=== PATIENT | male | born 1945 | race Caucasian/White ===

== ENCOUNTER 2019-07-12 16:25 | Emergency (ER) | payer MEDICARE, OTHER, SELFPAY ==
[2019-07-12 16:26] VITALS: BP 163/104; PULSE 80; RESP 14; TEMP 36.8; O2SAT 100; BMI 25.2
--- NOTE | 2019-07-12 16:41 | ED.DCSUM_ITS ---
- ER Visit Summary Date of Service: 07/12/19 Chief Complaint: Urinary retention History of Present Illness: The patient is a 74 M presenting with urinary retention. Patient states this has been ongoing for the past several days. He states that he is able to urinate small amounts of urine but does not feel like he is emptying his bladder. He was seen at the CT and had a CT scan that showed enlarged bladder. He was called today and advised to come to the ED for further evaluation. He states that he was complaining of dysuria and was put on Cipro and the symptoms have now improved. He is supposed to follow-up with urology. Physical Examination: Vitals are stable. Patient is afebrile. Alert no acute distress. HEENT exam is unremarkable. Neck is supple. Lungs are clear and equal bilaterally. Heart is regular rate and rhythm. Abdomen is soft mild suprapubic tenderness, no guarding or rebound Extremities are unremarkable. Skin is warm and dry. No focal neurologic deficit. Remainder of exam is unremarkable. Emergency Department Course and Treatment: Ryan catheter was placed on patient arrival and 2900 cc urine returned. Patient feels much improved. Urinalysis shows 0 white cells, 0-5 red blood cells. He was sent home with a Ryan catheter, leg bag. Advised to follow-up with urology. Advised to return to ED for worsening complaints. Disposition: Discharge home Impression: Urinary retention This note was generated with [employer] dictation software. It may contain incorrect words, spelling, and punctuation that were not noted in review of the chart prior to signing ED Disposition - Plan for ED Patient: Instructions: URINARY RETENTION, Male Referrals: Reynaldo Sullivan MD [Primary Care Provider] - Benjy Schulz MD [STAFF PHYSICIAN] -
[2019-07-12] MEDS: Lidocaine Jelly 2% 20 ML Syringe (URO-JET) 20 APPLIC TOPICAL (17:00)
[2019-07-12 17:12] LABS: Bacteria 0 SEEN /hpf (None Seen); Mucous, Urine 0 SEEN /hpf (<or=2+); Squamous Epithelial Cells - UA 0 SEEN /hpf (0-5); White Blood Cells 0 SEEN /hpf (0-5)
[2019-07-12 17:30] LABS: Color, Urine Yellow (Yellow); Glucose, Dipstick 100 mg/dl (Normal); Ketone-Dipstick Negative (Negative); Leukocyte Esterase-Dipstick Negative /ul (Negative); Nitrite-Dipstick Negative (Negative); Occult Blood-Urine 250 /ul (Negative); Protein-Dipstick 30 mg/dl (Negative); Specific Gravity, Urine 1.015 (1.002-1.030); Urine Bilirubin Dipstick Negative (Negative); Urine Clarity Clear (Clear); Urine Urobilinogen Normal (Normal)
[2019-07-12 17:55] LABS: Red Blood Cells-Urine 0-5 SEEN /hpf (0-5)
--- NOTE | 2019-07-12 18:21 | ED.DEP ---
ED Disposition - Plan for ED Patient: Instructions: URINARY RETENTION, Male Referrals: Reynaldo Sullivan MD [Primary Care Provider] - Benjy Schulz MD [STAFF PHYSICIAN] -
[2019-07-12 18:41] VITALS: RESP 18
== END 2019-07-12 18:42 | disposition home or self-care (01) ==
LOC: ED 17:33
PROVIDERS: Emergency Provider Emergency Medicine; Family Provider Family Medicine; PCP Family Medicine
DX: R33.9 Retention of urine, unspecified (principal); E11.9 Type 2 diabetes mellitus without complications; I10 Essential (primary) hypertension; E78.00 Pure hypercholesterolemia, unspecified; N40.0 Benign prostatic hyperplasia without lower urinary tract symptoms
CPT/HCPCS: 51702; 81001; 99283

== ENCOUNTER → 2019-10-26 07:04 | Outpatient (CLI) | payer OTHER, SELFPAY ==
--- NOTE | 2019-10-26 15:34 | PFTCOMP_ITS ---
COMPLETE PULMONARY FUNCTION TEST INTERPRETATION Brief HPI: Patient is a 74 year old male, currently under the care of Dr. Galvan, who presents to [facility] for complete pulmonary function tests secondary to diagnosis of lung cancer. Respiratory therapist reports good effort and reproducible results. Interpretation: Forced expiration spirometry shows no large airways obstructive ventilatory defect with an FEV1 of 86% predicted. There is no significant bronchodilator response by strict ATS criteria. Spirograms are of good quality and plateau normally. The respiratory flow volume loop shows a normal pattern. Lung volumes by body plethysmography show a normal total lung capacity at 7.21 L, 111% predicted. FRC and RV are elevated out of proportion. Lung volume measurements are consistent with air-trapping. Diffusion capacity by carbon monoxide is normal at 77% predicted. The airway resistance is normal. No previous pulmonary function tests were available for review. Impression: Grossly normal pulmonary function testing. Decrease after bronchodilator likely secondary to poor effort versus respiratory muscle fatigue
== END ==
PROVIDERS: PCP Family Medicine; Referring Provider Orthopaedic Surgery; Visit Provider Orthopaedic Surgery
DX: C34.90 Malignant neoplasm of unspecified part of unspecified bronchus or lung (principal)
CPT/HCPCS: 94060; 94726; 94729

== ENCOUNTER 2020-03-23 09:48 | Inpatient (IN) | payer OTHER, MEDICARE, SELFPAY ==
[2020-03-23] VITALS (14 sets, daily range): BP systolic 143–158; BP diastolic 82–94; PULSE 75–114; RESP 12–19; TEMP 36.7–37.2; O2SAT 95–100; BMI 20.4
--- NOTE | 2020-03-23 09:52 | CT_ITS ---
We are attempting to reach an attending provider to discuss findings. An addendum with communication details will be sent when the communication is complete. STUDY: CT BRAIN WITHOUT CONTRAST REASON FOR EXAM: Male, 75 years old. CVA, SLURRED SPEECH, RT SIDED WEAKNESS RADIATION DOSAGE (If Supplied By Facility): CTDIvol = ( 44.99 ) mGy, DLP = ( 829.85 ) mGycm TECHNIQUE: Transaxial CT imaging of the brain was performed without administration of intravenous contrast material. Coronal and sagittal reconstructions were performed. Individualized dose optimization techniques were used for this CT. COMPARISON: No relevant priors. FINDINGS: Normal soft tissue structures. Normal calvarium. Normal size ventricles and extra-axial spaces for the patient''s age. Hypodensities in the white matter of both cerebral hemispheres are greater in the frontal lobes. They are chronic white matter ischemic changes. 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 No midline shift and no mass effects. Normal basal ganglia and thalami. Normal brainstem. Normal cerebellum. There is no intracranial hemorrhage. There are no findings of an acute ischemic infarction. Normal visualized paranasal sinuses. CT/Brain/Head without Contrast IMPRESSION: 1. No CT evidence of intracranial bleeding, acute ischemic infarct or acute intracranial abnormality at this time. 2. 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 Electronically Signed: Narinder Campbell MD at 10:07 EDT , Service support ,
--- NOTE | 2020-03-23 09:52 | EKG12_ITS ---
Test Reason : STROKE TEAM Blood Pressure : / mmHG Vent. Rate : 080 BPM Atrial Rate : 080 BPM P-R Int : 142 ms QRS Dur : 084 ms QT Int : 366 ms P-R-T Axes : 063 009 048 degrees QTc Int : 422 ms Normal sinus rhythm Normal ECG Confirmed by ANGELA BUCKNER, DAVID ([id number]), editor publications JONAH PLASCENCIA ([id number]) on 03/26/2020 9:23:41 AM Referred By: RU Confirmed By:DAVID MILLER MD
--- NOTE | 2020-03-23 09:53 | RAD_ITS ---
STUDY: X-RAY CHEST REASON FOR EXAM: Male, 75 years old. Slurred speech and weakness. Small cell lymphoma. TECHNIQUE: AP upright portable view. COMPARISON: None. FINDINGS: The lungs are clear and expanded. There is no demonstrated pleural abnormality. Normal size heart. Normal mediastinum and jeff. Normal visualized pulmonary arteries. Normal visualized aortic arch and descending thoracic aorta. Normal visualized thoracic spine. Normal visualized ribs, clavicles, and shoulders. There is no demonstrated abnormality of the visualized soft tissue structures of the upper abdomen. RAD/Chest 1 View (Portable) IMPRESSION: Normal x-ray examination of the chest. Electronically Signed: Narinder Campbell MD at 12:09 EDT , Service support ,
[2020-03-23 10:01] LABS: Absolute Lymphocyte Count 1.01 X10^3/uL (0.83-4.51); Absolute Neutrophil Count 5.9 X10^3/uL (2.0-7.7); Basophil# 0.02 X10^3/uL; Basophil% 0.3 % (0-1); Eosinophil# 0.26 X10^3/uL; Eosinophils% 3.5 % (0-5); Hematocrit 27.2 % (40-54); Hemoglobin 8.5 g/dL (13.0-16.5); Lymphocyte # 1.01 X10^3/ul (4.0); Lymphocyte % 13.4 % (19-41); Mean Corp Hgb Conc 31.3 g/dL (32-36); Mean Corpuscular Hgb 27.7 pg (27.0-32.0); Mean Corpuscular Volume 88.6 fL (80-94); Mean Platelet Vol. 10.4 fl (6.2-12.0); Monocyte# 0.35 X10^3/uL; Monocyte% 4.6 % (0-10); NRBC Flagged by Analyzer 0 % (0-5); Neutrophil # 5.86 X10^3/uL (2.7-7.7); Neutrophil % 77.8 % (47-70); Platelet Count 222 K/mm3 (150-450); RBC Distribution Width SD 48.5 fl (35.1-43.9); Red Blood Count 3.07 M/mm3 (4.6-6.2); White Blood Count 7.5 K/mm3 (4.4-11.0)
[2020-03-23 10:12] LABS: International Normalized Ratio 1.4
[2020-03-23 10:13] LABS: Partial Thromboplast Time 34.7 Seconds (24.1-36.2)
--- NOTE | 2020-03-23 10:14 | ED.DCSUM_ITS ---
- ER Visit Summary Date of Service: 03/23/20 Chief Complaint: [Difficulty with speech] History of Present Illness: The patient is a 75 M [presents the emergency department via private vehicle with his . Patient apparently started having hard time finding words approximately 9 AM today. Patient also was having a hard time opening the door with his right hand. Patient currently undergoing treatment for lung cancer. Patient is stage IV. states he recently had a brain scan that did not show any evidence of metastasis to the brain. No history of stroke. Patient does have history of diabetes. Patient denies headache. He denies chest pain or shortness of breath. He denies recent illness otherwise. states that he has been feeling somewhat weak over the last week and has had some vision changes over the last 2 to 3 days where he has had trouble with depth perception. also states patient recently received a unit of blood and some IV fluids earlier in the week. No history of rectal bleeding. No recent surgeries.] Physical Examination: [HEENT-PERRLA, EOMI. Cranial nerves II through XII grossly intact. TMs clear. Mucous membranes moist. No adenopathy. Cardiovascular-regular rate and rhythm without murmur or ectopy Lungs-clear to auscultation, chest wall stable without crepitus or subcu emphysema Abdomen-normoactive bowel sounds, soft, nontender, no rebound or rigidity, no peritoneal signs. Neuro [id number] and heel reynolds testing within normal limits, negative Romberg, negative , Fundi benign. NIH stroke scale was a 2 4 expressive aphasia. No focal weakness noted on exam. No ataxia. Extremities-intact ?4, normal range of motion, normal pulses, atraumatic] Test Results: [CT scan of the brain without contrast obtained showed no evidence of hemorrhage or acute infarct. CBC with differential obtained showed a white count of 7.5, hemoglobin 8.5, hematocrit 27, platelets 222. INR was 1.4. Fingerstick blood sugar on arrival was 134.] Emergency Department Course and Treatment: [Patient was evaluated via robot by neurologist from [facility] after return from CT scanner. Patient's symptoms significantly improved at this time and his expressive aphasia has improved dramatically. The neurologist got an NIH stroke scale of 0 and recommended against TPA at this time but did recommend admission for small stroke work-up.] Treatment Plan: [Admit] Disposition: [Admit] Impression: [CVA] Lung cancer history Anemia This note was generated with [employer] dictation software. It may contain incorrect words, spelling, and punctuation that were not noted in review of the chart prior to signing ED Disposition - Plan for ED Patient: Referrals: Reynaldo Sullivan MD [Primary Care Provider] -
[2020-03-23 10:18] LABS: Anion Gap 4 (5-15); BUN 20 mg/dL (7-18); BUN/Creat Ratio 13.6 RATIO (10-20); Calcium,Total 9.2 mg/dL (8.5-10.1); Chloride 106 mmol/L (98-107); Creatinine, Serum 1.47 mg/dL (0.70-1.30); EST Glomerular Filtration Rate 50 mL/min (>60); Est Glom Filt Rate - Afr Amer 60 mL/min (>60); Estimated Creatinine Clearance 42.03 ml/min; Glucose 188 mg/dL (74-106); Potassium 4.2 mmol/L (3.5-5.1); Sodium Level 138 mmol/L (136-145)
--- NOTE | 2020-03-23 10:45 | ED.RN ---
PLACIDO HOLLIS CONTACTED AND MADE AWARE THAT PATIENT IS TO BE ADMITTED, WILL CALL BACK AND INFORM US OF THEIR CURRENT BED SITUATION.
--- NOTE | 2020-03-23 10:46 | HP.PCM_ITS ---
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 Patient symptoms started 2 hours prior to him presenting to the ED. He did experience numbness as well as weakness mainly involving the left upper extremity. Per patient's who was with him at the time of my assessment patient also did experience some slurred speech. Patient symptoms had apparently resolved at the time of arrival to the ED. Initial head CT obtained was unremarkable admitted to a monitored bed for subsequent management. Past Medical History Past Medical History (Chronic Problems): Chronic Problems Small cell carcinoma of left lung (Chronic) Allergies atorvastatin calcium [From Lipitor] Allergy (Verified 03/23/20 10:03) Other Home Medications: Ambulatory Orders Medication Instructions Recorded Amlodipine [Norvasc] 10 mg PO DAILY 06/28/14 Aspirin [Aspirin, Baby] 81 mg PO DAILY 06/28/14 Hydrochlorothiazide [Hctz] 25 mg PO DAILY 06/28/14 Insulin Glargine [Lantus SoloStar 100 units SC QHS 06/28/14 Pen] Levothyroxine [Synthroid] 100 mcg PO DAILY 06/28/14 Lisinopril [Zestril] 40 mg PO DAILY 06/28/14 Meloxicam [Mobic] 15 mg PO DAILY 06/28/14 Pravastatin [Pravachol] 20 mg PO QHS 06/28/14 metFORMIN (XR) [Glucophage Xr] 500 mg PO BID 06/28/14 Hydrocodone Bitart/Apap 5-325 1 tablet PO Q4H PRN PRN #20 tablet 07/05/14 [Hickman 5MG-325MG] Smoking Status: Never smoker - *Family History Sibling History Items: Stroke - brother Review of Systems Constitutional: Denies: Anorexia, Chills, Fever, Night Sweats, Weight Change HEENT: Denies: Head Aches, Sinus Congestion, Sinus Drainage Cardiovascular: Denies: Chest Pain, Orthopnea, Palpitations, Paroxysmal Noc. Dyspnea Respiratory: Denies: Cough, Shortness of breath at rest, Shortness of breath upon exertion, Sputum production Gastrointestinal: Denies: Abdominal Pain, Hematemesis, Hematochezia, Nausea, Melena, Vomiting Genitourinary: Denies: Dysuria, Frequency, Hematuria, Urgency Musculoskeletal: Denies: Joint Pain, Joint Tenderness Skin: Denies: Rash Neurological: Reports: Focal weakness, Numbness. Denies: Tingling Psychiatric: Denies: Homicidal Ideations, Suicidal Ideations Hematologic/ Lymphatic: Denies: Easy Bruising, Easy Bleeding VTE Information - Inpt Only VTE Present on Admission: No VTE Mechan Device Prophylaxis: None VTE Pharm Prophylaxis ordered?: Yes Patient Problems: Active and Suspected Problems Right sided weakness (Acute) Objective: GENERAL: cooperative HEENT: Atraumatic; EYES; Anicteric, Normal Conjunctiva NECK; supple, normal thyroid, RESPIRATORY: Diminished to auscultation CARDIOVASCULAR: Regular S1 S2, GI: soft, normoactive bowel sounds, : No Renal angle tenderness; EXTREMITIES: No edema, no clubbing, MUSCULOSKELETAL: no muscle waisting NEURO: Awake; no lateralizing signs. SKIN: No Rash PSYCH; Flat affect - Physical Exam Vitals/I&O's: Vital Signs Temp Pulse Resp BP Pulse Ox 98.6 F 77 18 149/90 H 95 03/23/20 10:44 03/23/20 10:44 03/23/20 10:44 03/23/20 10:44 03/23/20 10:44 Oxygen Delivery Method Room Air Weight: 66.4 kg Body Mass Index (BMI) 20.4 Finger Stick Blood Glucose 134 Laboratory Results 03/23/20 09:50: WBC 7.5, RBC 3.07 L, Hgb 8.5 L, Hct 27.2 L, MCV 88.6, MCH 27.7, MCHC 31.3 L, RDW Std Deviation 48.5 H, RDW Coeff of Aldo 15.0 H, Plt Count 222, MPV 10.4, Immature Gran % (Auto) 0.400, Neut % (Auto) 77.8 H, Lymph % (Auto) 13.4 L, Candler % (Auto) 4.6, Eos % (Auto) 3.5, Baso % (Auto) 0.3, Absolute Neuts (auto) 5.9, Absolute Lymphs (auto) 1.01, Nucleated RBC % 0 03/23/20 09:50: PT 17.0 H, INR 1.4, APTT 34.7 03/23/20 09:50: Sodium 138, Potassium 4.2, Chloride 106, Carbon Dioxide 28.0, Anion Gap 4 L, BUN 20 H, Creatinine 1.47 H, Estim Creat Clear Calc 42.03, Est GFR (MDRD) Af Amer 60, Est GFR (MDRD) Non-Af 50 L, BUN/Creatinine Ratio 13.6, Glucose 188 H, Calcium 9.2, Troponin I < 0.015 Current Medications Labetalol HCl (Trandate) 20 mg IV X1 PRN PRN Reason: BLOOD PRESSURE Assessment/Plan All Active Problems Right sided weakness (Acute) Patient is a 75-year-old gentleman presenting with right-sided weakness 1. Right-sided weakness TIA versus acute CVA. Admitted to monitored bed placed on every 4 neurochecks as part of patient's management ordered MRI of the brain as well as CTA of the head and neck. Patient was also started on antiplatelet therapy with aspirin as well as pravastatin (patient has allergy to atorvastatin) 3. 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 Patient had apparently declined prophylactic irradiation of the brain 3. Hypertension - Blood pressure controlled, home medications continued with dose adjustment as needed 4. Hypothyroidism - Patient is on levothyroxine home dose continued 5. Dyslipidemia -Patient is on statin therapy, continued at home dose 6. Diabetes mellitus type 2 ?Controlled on metformin held on admission please on Accu-Cheks before meals and at bedtime with sliding scale coverage as well as 1800 ADA diet 7. DVT prophylaxis - On enoxaparin . Advance planning; did discuss with the patient and family regarding advanced directives as well as CODE STATUS. Did explain the various scenarios involved ( FULL CODE, DNR CCA, DNR CCA with no intubation, and DNR CC and what each meant) patient elected t remain full code with CPR and intubation if warranted i ntubation. Order was placed. Time spent on discussion 18 minutes. Inpatient E&M: 55471 Init Hosp L3 Procedures: 39946 Advncd Care Plan 30 Min
--- NOTE | 2020-03-23 11:49 | ED.RN ---
PLACIDO [facility] CALLS BACK STATING THAT THEY HAVE NO MEDICAL BEDS AVAILABLE, PATIENT WILL BE ADMITTED HERE AT [facility].
--- NOTE | 2020-03-23 12:08 | CT_ITS ---
STUDY: CTA HEAD AND NECK WITH CONTRAST REASON FOR EXAM: Male, 75 years old. ACUTE CVA- SLURRED SPEECH, DIFFICULTY GETTING WORDS OUT, RT SIDED WEAKNESS RADIATION DOSAGE (If Supplied By Facility): CTDIvol = ( 19.17 ) mGy, DLP = ( 658.77 ) mGycm TECHNIQUE: CT angiography was performed with a multi-detector CT scanner. Data acquisition was obtained from the skull base through the vertex following intravenous administration of [id number]. MIP images were reconstructed from the axial data set. Post-processing of the angiographic images was performed, with multiplanar reformation and 3D reconstruction. Individualized dose optimization techniques were used for this CT. COMPARISON: No relevant priors. FINDINGS: The aorta has a normal branching pattern. Right brachiocephalic, right subclavian, right common carotid, left common carotid and left subclavian arteries are patent. Vertebral arteries are codominant and arise bilaterally from the subclavian arteries. Bilateral internal and external carotid arteries are patent with mild atherosclerotic plaque in the carotid bulbs without stenosis. Bilateral base of skull carotids, intracranial carotids, bifurcations, anterior and middle cervical arteries and proximal branches are patent. There is a origin right [employer]. Left posterior commuting artery is not seen. Bilateral posterior cerebral arteries, superior cerebellar, basilar and codominant intradural vertebral arteries are patent. Brain parenchyma is visualized in a suboptimal fashion likely with bilateral frontal white matter periventricular hypodensity. Soft tissues of the neck are unremarkable. Cervical spine is aligned. CT/CTA Head AND Neck W/ Contrast IMPRESSION: Patent craniocervical arteries. Electronically Signed: Yunier Umanzor, at 15:50 EDT Tel , Service support ,
--- NOTE | 2020-03-23 12:08 | ECHOD_ITS ---
Reason For Study: TIA/CVA Procedure This was a 2D Doppler, Color Flow transthoracic echocardiogram. The study was technically difficult. Contrast injection was performed. Exam performed portable in patient room. Left Ventricle Normal LV size. Left ventricular systolic function is normal. The estimated ejection fraction is 60 %. No regional wall motion abnormalities noted. Right Ventricle Normal RV size. Normal systolic function. Atria Normal left atrium. Normal right atrium. Bubble contrast study negative for right to left interatrial shunt. Mitral Valve Normal mitral valve. Tricuspid Valve Normal tricuspid valve. Aortic Valve Normal aortic valve. Trisinus/trileaflet aortic valve. Pulmonic Valve Normal pulmonic valve. Great Vessels Normal aortic root. The pulmonary artery is normal size. Normal inferior vena cava. Pericardium/Pleural No pericardial effusion. Medication Performed a rapid injection of agitated mix of 9 cc saline and 1cc air to assess for atrial septal defect. MMode/2D Measurements & Calculations LVIDd: 4.3 cm IVSd: 1.0 cm LA dimension: 3.5 cm LVIDs: 2.3 cm LVPWd: 1.1 cm RVDd: 3.3 cm FS: 46.2 % LAV(MOD-bp): 55.6 ml LA A4 area: 18.1 cm2 RA A4 area: 14.4 cm2 LAV(MOD-bp) Indexed: 30.1 ml/m2 LAV(MOD-sp2): 47.8 ml LAV(MOD-sp4): 55.9 ml Time Measurements MV dec time: 0.24 sec Doppler Measurements & Calculations MV E max michoacano: 91.7 cm/sec Lat Peak E' [place]: 11.2 cm/sec Med Peak E' [place]: 9.6 cm/sec MV A max mich[place]ano: 99.0 cm/sec E/E' lat: 8.2 E/E' med: 9.5 MV E/A: 0.93 MV V2 max: 117.5 cm/sec MV P1/2t max [place]: 97.3 cm/sec Ao V2 max: 201.2 cm/sec MV max P.5 mmHg MV P1/2t: 75.0 msec Ao max P.2 mmHg MV V2 mean: 65.3 cm/sec MV dec slope: 379.9 cm/sec2 MV mean P.9 mmHg MV V2 VTI: 29.0 cm MVA(P1/2t): 2.9 cm2 LV V1 max: 113.3 cm/sec PA V2 max: 102.7 cm/sec LV V1 max P.1 mmHg Interpretation Summary Normal LV size. Left ventricular systolic function is normal. The estimated ejection fraction is 60 %. Bubble contrast study negative for right to left interatrial shunt. Structurally normal valves. Ordering Physician: Aime Landon Referring Physician: MD Rui Sullivanery Performed By: Bradley Jimenez RCS
--- NOTE | 2020-03-23 13:33 | CASEMGMT ---
MARTIR RIVAS NOTE: Pt has [employer] benefits and M[employer]. MARTIR RIVAS to room to talk with pt. Introduced self and role of MARTIR RIVAS. Reviewed Declination to transfer to [place] form with pt. Pt aware [facility] was notified of pt's admission to [facility] and that bed is not available at this time. Pt states that even if a bed does become available, that he wishes to remain @ [facility] and does not wish to transfer to [facility]. Pt attempted to sign Declination to transfer form, but was having difficulty signing d/t CVA symptoms/difficulty w/depth perception. Call placed to pt's and discussed option to transfer, that pt declines to transfer to [facility], and in agreeance to have pt remain @ [facility] and to be MCR billed for hospitalization. Declination to transfer form completed and faxed to [place] transfer center at this time along w/clinicals. Copy of form placed on pt's chart and original returned to pt at this time. Call placed to [place] Transfer center and they are aware pt does not wish to transfer to [facility]. Yuli LU RN, CM
[2020-03-23] MEDS: Famotidine 20 MG Tablet PO (16:53)
[2020-03-23] MEDS: 0.9% Normal Saline 1,000 ML 100 ML IV (16:53)
[2020-03-23 17:31] LABS: Bedside Glucose 88 mg/dL (70-110)
[2020-03-23] MEDS: Gabapentin 300 MG Capsule PO (18:14)
[2020-03-23 22:10] LABS: Bedside Glucose 109 mg/dL (70-110)
[2020-03-23] MEDS: Mirtazapine 15 MG Tablet PO (22:41)
[2020-03-24] VITALS (12 sets, daily range): BP systolic 136–142; BP diastolic 73–80; PULSE 70–89; RESP 16–18; TEMP 36.8–37.1; O2SAT 97–100
[2020-03-24] MEDS: 0.9% Normal Saline 1,000 ML 100 ML IV ×2 (02:58→14:33)
[2020-03-24] MEDS: Levothyroxine 125 MCG Tablet 250 MCG PO (06:17)
[2020-03-24] MEDS: Gemfibrozil 600 MG Tablet PO ×2 (06:43→16:44)
[2020-03-24 06:51] LABS: Absolute Lymphocyte Count 1.23 X10^3/uL (0.83-4.51); Absolute Neutrophil Count 5.4 X10^3/uL (2.0-7.7); Basophil# 0.03 X10^3/uL; Basophil% 0.4 % (0-1); Eosinophil# 0.25 X10^3/uL; Eosinophils% 3.4 % (0-5); Hematocrit 24.4 % (40-54); Hemoglobin 7.7 g/dL (13.0-16.5); Lymphocyte # 1.23 X10^3/ul (4.0); Lymphocyte % 16.6 % (19-41); Mean Corp Hgb Conc 31.6 g/dL (32-36); Mean Corpuscular Hgb 27.6 pg (27.0-32.0); Mean Corpuscular Volume 87.5 fL (80-94); Mean Platelet Vol. 10.1 fl (6.2-12.0); Monocyte# 0.43 X10^3/uL; Monocyte% 5.8 % (0-10); NRBC Flagged by Analyzer 0 % (0-5); Neutrophil # 5.43 X10^3/uL (2.7-7.7); Neutrophil % 73.3 % (47-70); Platelet Count 226 K/mm3 (150-450); RBC Distribution Width CV 14.7 % (11.6-14.6); RBC Distribution Width SD 47.2 fl (35.1-43.9); Red Blood Count 2.79 M/mm3 (4.6-6.2); White Blood Count 7.4 K/mm3 (4.4-11.0)
[2020-03-24 07:13] LABS: Anion Gap 5 (5-15); BUN 16 mg/dL (7-18); BUN/Creat Ratio 13.1 RATIO (10-20); Calcium,Total 8.9 mg/dL (8.5-10.1); Chloride 108 mmol/L (98-107); Cholesterol 106 mg/dL (200); Creatinine, Serum 1.22 mg/dL (0.70-1.30); EST Glomerular Filtration Rate 62 mL/min (>60); Est Glom Filt Rate - Afr Amer 75 mL/min (>60); Estimated Creatinine Clearance 50.65 ml/min; Glucose 57 mg/dL (74-106); High Density Lipoprotein 19 mg/dL; Magnesium 1.9 mg/dL (1.6-2.6); Potassium 4.1 mmol/L (3.5-5.1); Sodium Level 139 mmol/L (136-145); Triglycerides 166 mg/dL; Very Low Density Lipoprotein 33 mg/dL (5-40)
[2020-03-24] MEDS: Aspirin 81 MG TAB.CHEW PO (07:25)
[2020-03-24] MEDS: Gabapentin 300 MG Capsule PO ×2 (07:25→16:44)
--- NOTE | 2020-03-24 09:00 | MRI_ITS ---
STUDY: MRI BRAIN WITHOUT CONTRAST REASON FOR EXAM: Male, 75 years old. CVA, -- rt sided weakness, speech change yesterday, resolved now, currently on immunotherapy for lung ca TECHNIQUE: Standardized multiplanar fat and water weighted pulse sequences were obtained. COMPARISON: CT head without contrast 03/23/2020. FINDINGS: No restricted diffusion to suspect acute or subacute ischemic infarct. Normal ventricles and cisterns for his age. Multiple periventricular white matter more than subcortical white matter T2 FLAIR hyperintensity foci in both cerebral hemispheres are chronic white matter ischemic changes. Old lacunar cystic infarct in the right anterior periventricular white matter is unchanged. Normal bilateral basal ganglia. Normal thalami. There is no extra-axial fluid accumulation. Normal flow voids within the major intracranial circulation suggesting patency by spin echo criteria. Normal sella turcica, pituitary gland, infundibular stalk, optic chiasm and hypothalamus. Normal tectal plate and pineal gland. Normal midbrain, parviz and medulla. Normal cerebellum. Normal basal cisterns. Normal bilateral temporal bones. Normal bilateral internal auditory canals. No demonstrated orbital abnormality, within the constraints of a routine brain study. Normal visualized paranasal sinuses. Normal calvarium and skull base. Normal visualized soft tissue structures. Normal visualized upper cervical spine. MRI/Brain without Contrast IMPRESSION: 1. No MRI evidence of acute or subacute ischemic infarct or acute intracranial abnormality. 2. 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 3. No significant interval change when compared to noncontrast CT head scan 03/23/2020. Electronically Signed: Narinder Campbell MD at 11:24 EDT , Service support ,
--- NOTE | 2020-03-24 10:32 | PN_ITS ---
Patient Problems: Active and Suspected Problems Right sided weakness (Acute) Reason for Visit: Follow-up TIA/CVA Subjective: Patient is a 75-year-old gentleman presenting with right-sided weakness Admitted to monitored bed scheduled to undergo subsequent evaluation with an MRI of the head as well as 2D echo patient has a significant drop in his hemoglobin level from 8.5 on admission to 7.7 Objective: GENERAL: cooperative HEENT: Atraumatic; EYES; Anicteric, Normal Conjunctiva NECK; supple, normal thyroid, RESPIRATORY: Diminished to auscultation CARDIOVASCULAR: Regular S1 S2, GI: soft, normoactive bowel sounds, : No Renal angle tenderness; EXTREMITIES: No edema, no clubbing, MUSCULOSKELETAL: no muscle waisting NEURO: Awake; no lateralizing signs. SKIN: No Rash PSYCH; Flat affect Vitals/I&O's: Vital Signs Temp Pulse Resp BP Pulse Ox 98.6 F 89 18 140/73 H 97 03/24/20 04:15 03/24/20 10:00 03/24/20 04:15 03/24/20 04:15 03/24/20 06:52 Oxygen Delivery Method Room Air Weight: 66.4 kg Body Mass Index (BMI) 20.4 Finger Stick Blood Glucose 134 Intake and Output for Last 24 Hours 03/22/20 03/23/20 03/24/20 23:59 23:59 23:59 Intake Total 950 / 1050 490 / 490 Output Total 700 / 700 Balance 950 / 350 -210 / -210 Laboratory Results 03/23/20 16:55: POC Glucose 88 03/23/20 22:04: POC Glucose 109 03/24/20 06:04: WBC 7.4, RBC 2.79 L, Hgb 7.7 L, Hct 24.4 L, MCV 87.5, MCH 27.6, MCHC 31.6 L, RDW Std Deviation 47.2 H, RDW Coeff of Aldo 14.7 H, Plt Count 226, MPV 10.1, Immature Gran % (Auto) 0.500, Neut % (Auto) 73.3 H, Lymph % (Auto) 16.6 L, [place] % (Auto) 5.8, Eos % (Auto) 3.4, Baso % (Auto) 0.4, Absolute Neuts (auto) 5.4, Absolute Lymphs (auto) 1.23, Nucleated RBC % 0 07/19/20 06:04: Sodium 139, Potassium 4.1, Chloride 108 H, Carbon Dioxide 26.0, Anion Gap 5, BUN 16, Creatinine 1.22, Estim Creat Clear Calc 50.65, Est GFR (MDRD) Af Amer 75, Est GFR (MDRD) Non-Af 62, BUN/Creatinine Ratio 13.1, Glucose 57 L, Calcium 8.9, Magnesium 1.9, Triglycerides 166, Cholesterol 106, LDL Cholesterol 54, VLDL Cholesterol 33, HDL Cholesterol 19 L Current Medications Acetaminophen (Tylenol) 650 mg PO Q4H PRN PRN PRN Reason: Headache/Temp>99.6F Acetaminophen (Tylenol) 650 mg RECTAL Q4H PRN PRN PRN Reason: Headache/Temp>99F Acetaminophen (Tylenol Liquid) 650 mg NG Q4H PRN PRN PRN Reason: Headache/Temp>99F Al Hydroxide/Mg Hydroxide (Mylanta Ii) 30 ml PO Q6H PRN PRN PRN Reason: Gastric Burning Albuterol Sulfate (Ventolin Aerosols) 2.5 mg INHALATION Q2H PRN PRN PRN Reason: SOB/Wheezing Allopurinol (Zyloprim) 300 mg PO DAILY [facility] Amlodipine Besylate (Norvasc) 10 mg PO DAILY [facility] Aspirin (Aspirin, Baby) 81 mg PO DAILY@0800 [facility] Last Admin: 03/24/20 07:25 Dose: 81 mg Documented by: Dextrose (D50w Syringe) 0 gm IV X1 PRN; Protocol PRN Reason: Hypoglycemia Enoxaparin Sodium (Lovenox) 40 mg SC DAILY [facility] Famotidine (Pepcid) 20 mg PO DAILY [facility] Last Admin: 03/23/20 16:53 Dose: 20 mg Documented by: Gabapentin (Neurontin) 300 mg PO BIDCM [facility] Last Admin: 03/24/20 07:25 Dose: 300 mg Documented by: Gemfibrozil (Lopid) 600 mg PO BIDAC [facility] Last Admin: 03/24/20 06:43 Dose: 600 mg Documented by: Glucagon () 1 mg IM .X1 PRN PRN Reason: Hypoglycemia Hydralazine HCl (Apresoline Iv) 5 mg IV Q30M PRN PRN Reason: to maintain BP goals Hydrochlorothiazide (Hctz) 25 mg PO DAILY [facility] Sodium Chloride () 1,000 mls @ 100 mls/hr IV .Q10H [facility] Last Admin: 03/24/20 02:59 Dose: Not Given Documented by: Insulin Glargine (Lantus (Bkc)) 27 units SC QHS [facility] Insulin Human Lispro (Humalog Kwikpen (Bkc)) 0 unit SC ACHS [facility]; Protocol Last Admin: 03/24/20 06:43 Dose: Not Given Documented by: Labetalol HCl (Trandate) 10 - 20 mg IV Q10M PRN PRN PRN Reason: to maintain BP goals Levothyroxine Sodium (Synthroid) 250 mcg PO DAILY@0600 [facility] Last Admin: 03/24/20 06:17 Dose: 250 mcg Documented by: Lisinopril (Zestril) 40 mg PO DAILY [facility] Loperamide HCl (Imodium) 2 mg PO 4X/DAY PRN PRN Reason: LOOSE STOOLS Melatonin (Melatonin) 3 mg PO QHS PRN PRN PRN Reason: INSOMNIA Mirtazapine (Remeron) 15 mg PO QHS [facility] Last Admin: 03/23/20 22:41 Dose: 15 mg Documented by: Nitroglycerin (Nitrostat) 0.4 mg SUBLINGUAL Q5M PRN PRN Reason: CARDIAC/CHEST PAIN Ondansetron HCl (Zofran) 4 mg IV Q8H PRN PRN PRN Reason: NAUSEA/VOMITING Oxycodone HCl (Oxyir) 5 mg PO Q4H PRN PRN PRN Reason: Pain Score 4-5/10 Oxycodone HCl (Oxyir) 10 mg PO Q4H PRN PRN PRN Reason: Pain Score 6-10/10 Promethazine HCl (Phenergan) 25 mg IM Q6H PRN PRN PRN Reason: Breakthrough Nausea/Vomiting Senna/Docusate Sodium (Senokot-S, Jessica-Colace) 2 tablet PO BID PRN PRN PRN Reason: Constipation Sodium Chloride () 10 - 40 ml IV UD PRN PRN Reason: SALINE FLUSH STROKE Vital Signs/Narrative: Vital Signs Pulse Pulse Ox 03/24/20 10:00 89 03/24/20 06:52 97 Medical Necessity - Tobacco Use Smoking Status: Never smoker Tobacco Use: Non-smoker Assessment/Plan All Active Problems Right sided weakness (Acute) Patient is a 75-year-old gentleman presenting with right-sided weakness 1. Right-sided weakness TIA versus acute CVA. Admitted to monitored bed placed on every 4 neurochecks as part of patient's management ordered MRI of the brain as well as CTA of the head and neck. Patient was also started on antiplatelet therapy with aspirin as well as pravastatin (patient has allergy to atorvastatin) -03/24/2020: Patient scheduled to undergo MRI 2D echo scheduled for 03/25/2020 3. 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 Patient had apparently declined prophylactic irradiation of the brain 3. Hypertension - Blood pressure controlled, home medications continued with dose adjustment as needed 4. Hypothyroidism - Patient is on levothyroxine home dose continued 5. Dyslipidemia -Patient is on statin therapy, continued at home dose 6. Diabetes mellitus type 2 ?Controlled on metformin held on admission please on Accu-Cheks before meals and at bedtime with sliding scale coverage as well as 1800 ADA diet 7. DVT prophylaxis - On enoxaparin 8. Anemia ?Suspected to be secondary to anemia of malignancy monitoring H&H no indication for blood transfusion at this point unless patient becomes symptomatic or hemogl obin falls below 7 Inpatient E&M: 54429 Subs Hosp L2
[2020-03-24] MEDS: Enoxaparin 40 MG/0.4 ML Syringe SC (11:01)
[2020-03-24] MEDS: hydroCHLOROthiazide 25 MG Tablet PO (11:01)
[2020-03-24] MEDS: amLODIPine 10 MG Tablet PO (11:02)
[2020-03-24] MEDS: Allopurinol 300 MG Tablet PO (11:02)
[2020-03-24] MEDS: Famotidine 20 MG Tablet PO (11:02)
[2020-03-24] MEDS: Lisinopril 40 MG Tablet PO (11:02)
[2020-03-24] MEDS: Loperamide 2 MG Capsule PO ×2 (11:44→16:46)
[2020-03-24] MEDS: Insulin Lispro 100 UNIT/ML INSULN.PEN SC ×2 (12:54→16:42)
[2020-03-24 17:03] LABS: Bedside Glucose 52 mg/dL (70-110)
[2020-03-24 17:03] LABS: Bedside Glucose 77 mg/dL (70-110)
[2020-03-24 17:04] LABS: Bedside Glucose 248 mg/dL (70-110)
[2020-03-24 17:06] LABS: Bedside Glucose 215 mg/dL (70-110)
[2020-03-24] MEDS: Mirtazapine 15 MG Tablet PO (22:26)
[2020-03-24 22:51] LABS: Bedside Glucose 128 mg/dL (70-110)
[2020-03-25] MEDS: 0.9% Normal Saline 1,000 ML 100 ML IV (00:34)
[2020-03-25 03:00] VITALS: PULSE 75
[2020-03-25 04:15] VITALS: BP 137/87; PULSE 70; RESP 16; TEMP 36.8; O2SAT 98
[2020-03-25] MEDS: Levothyroxine 125 MCG Tablet 250 MCG PO (06:29)
[2020-03-25] MEDS: Gemfibrozil 600 MG Tablet PO (06:30)
[2020-03-25 07:01] LABS: Bedside Glucose 102 mg/dL (70-110)
[2020-03-25 07:20] LABS: Bedside Glucose 134 mg/dL (70-110)
[2020-03-25 07:24] VITALS: PULSE 72
[2020-03-25 07:59] VITALS: BP 110/78; PULSE 79; RESP 16; TEMP 37.3; O2SAT 98
--- NOTE | 2020-03-25 09:11 | CASEMGMT ---
Assessment- SW completed assessment with patient at bedside. SW also confirmed addresses and phone numbers for patient and his personnel clerk. Living situation- Patient lives with his in a 2 story home with 2 entry steps. PCP: Dr Sullivan Specialists: Patient stated he sees numerous specialists all of which are at [facility] in [place]. Pharmacy: [facility] DME: rollator, grab bars, and hand held shower ADL's/IADL's: Patient is mostly independent. He manages his own meds, assists with cleaning, and bathes himself. His does the cooking. He occasionally drives. He uses his rollator for longer distances only. Past SNF/rehab: [facility] Past HH: None LW: Yes and he is aware it is not on file at [facility] POA: Yes and he is aware it is not on file at [facility]. His Deborah is his HCPOA Plan: Patient plans on returning home at discharge. [facility] He is not sure if he will need therapy at d/c. He states he will figure this out after he has been home a couple of days. SW asked if he will be able to obtain his prescriptions at d/c since [facility] and he said he will be able to get them. LETICIA and RN CM to follow and assist with d/c planning as needed. Noy MONTEZ TOXICOLOGIST
--- NOTE | 2020-03-25 09:20 | CASEMGMT ---
SW completed a PHQ 9 with patient as he may have had a TIA/Stroke. He scored a 2 which indicates minimal depression. Noy MONTEZ MSW
[2020-03-25] MEDS: Aspirin 81 MG TAB.CHEW PO (09:55)
[2020-03-25] MEDS: Famotidine 20 MG Tablet PO (09:56)
[2020-03-25] MEDS: Lisinopril 40 MG Tablet PO (09:56)
[2020-03-25] MEDS: amLODIPine 10 MG Tablet PO (09:56)
[2020-03-25] MEDS: Allopurinol 300 MG Tablet PO (09:56)
[2020-03-25] MEDS: hydroCHLOROthiazide 25 MG Tablet PO (09:56)
[2020-03-25] MEDS: Gabapentin 300 MG Capsule PO (09:56)
[2020-03-25] MEDS: Enoxaparin 40 MG/0.4 ML Syringe SC (09:56)
--- NOTE | 2020-03-25 10:20 | TELEMED_ITS ---
[facility] Tele[facility] has confirmed receipt of a request for visit. This document confirms receipt of the order initiating the consult. To find the results of the consultation, please view the patient's reports for the scanned Telemed Consult.
[2020-03-25] MEDS: Insulin Lispro 100 UNIT/ML INSULN.PEN SC (11:40)
--- NOTE | 2020-03-25 11:44 | PCM.DC ---
- Discharge Diagnoses Current Active Problems: Current Active and Chronic Problems TIA Small cell carcinoma of left lung (Chronic) You will use the following diet at home:: No restrictions Discharge Activity: Return to Normal Activity Call your doctor if you observe: Numbness or Tingling, Shortness of breath, Dizziness, Fainting spells, Chest pain Allergies/Adverse Reactions: Allergies atorvastatin calcium [From Lipitor] Allergy (Verified 03/23/20 10:03) Other Medications to take at Discharge Insulin Glargine [Lantus SoloStar Pen] 46 units SC QHS 06/28/14 Levothyroxine [Synthroid] 250 mcg PO DAILY 06/28/14 Lisinopril [Zestril] 40 mg PO DAILY 06/28/14 metFORMIN (XR) [Glucophage Xr] 1,000 mg PO BID 06/28/14 Allopurinol 300 mg PO DAILY 03/23/20 Chlorhexidine 15 ml PO BID PRN 03/23/20 Gabapentin 300 mg PO BID 03/23/20 Gemfibrozil 600 mg PO BID 03/23/20 Loperamide [Imodium] 2 mg PO 4X/DAY PRN 03/23/20 Mirtazapine [Remeron] 15 mg PO QHS 03/23/20 [place]-3 Fatty Acids/Fish Oil [Fish Oil 1,000 mg Capsule] 3 ea PO BID 03/23/20 Ondansetron HCl [Zofran] 4 mg PO Q6H PRN PRN 03/23/20 Potassium Gluconate 99 mg PO DAILY 03/23/20 Amlodipine [Norvasc] 10 mg PO DAILY tablet 03/25/20 Aspirin [Aspirin, Baby] 81 mg PO DAILY@0800 #30 tab.chew 03/25/20 Hydrochlorothiazide [Hctz] 25 mg PO DAILY tablet 03/25/20 The following prescriptions were given: Aspirin [Aspirin, Baby] 81 mg PO DAILY@0800 #30 tab.chew Transmission Status: Pending to [facility] Primary Care Physician: Reynaldo Sullivan MD [Primary Care Provider] - Please follow up with your Primary Care Physician in: 1 Week Test Results: Test results from this visit will be discussed in further detail at your follow-up appointment, if applicable. Please Follow Up With: Shree Shah MD - Neurology When: 2 Weeks Proposed Discharge Date: 03/25/20
[2020-03-25 11:45] LABS: Bedside Glucose 244 mg/dL (70-110)
--- NOTE | 2020-03-25 11:56 | PHA.DC.MR ---
Pharmacy Service has performed discharge medication reconciliation for this patient upon discharge home. No new medications issued at time of discharge review. Medications reviewed are from previously reported home medications. The patient's discharge medication list was reviewed for discrepancies and discrepancies were resolved. Home Medications Insulin Glargine [Lantus SoloStar Pen] 46 units SC QHS 06/28/14 Levothyroxine [Synthroid] 250 mcg PO DAILY 06/28/14 Lisinopril [Zestril] 40 mg PO DAILY 06/28/14 metFORMIN (XR) [Glucophage Xr] 1,000 mg PO BID 06/28/14 Allopurinol 300 mg PO DAILY 03/23/20 Chlorhexidine [(None)] 15 ml PO BID PRN 03/23/20 Gabapentin 300 mg PO BID 03/23/20 Gemfibrozil 600 mg PO BID 03/23/20 Loperamide [Imodium] 2 mg PO 4X/DAY PRN 03/23/20 Mirtazapine [Remeron] 15 mg PO QHS 03/23/20 [place]-3 Fatty Acids/Fish Oil [Fish Oil 1,000 mg Capsule] 3 ea PO BID 03/23/20 Ondansetron HCl [Zofran] 4 mg PO Q6H PRN PRN 03/23/20 Potassium Gluconate 99 mg PO DAILY 03/23/20
[2020-03-25 11:57] VITALS: PULSE 74
--- NOTE | 2020-03-25 12:49 | PCM.DC.SUM ---
<Sharron Ecueda - Last Filed: 03/25/20 13:02> Discharge Date and Diagnosis Date of Admission: 03/23/20 Date of Discharge: 03/25/20 - Primary Discharge Diagnosis Acute Problems: Active Problems 1. TIA 2. Hypertension 3. 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 Small cell carcinoma 6. 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 No CT evidence of intracranial bleeding, acute ischemic infarct or acute intracranial abnormality at this time. 2. 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 Electronically Signed: Narinder Campbell MD at 10:07 EDT , Service support , ADDENDUM: 03/23/20 1020 IMPRESSION: 1. No CT evidence of intracranial bleeding, acute ischemic infarct or acute intracranial abnormality at this time. 2. 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 N.B. : The above information has been verbally conveyed by Narinder Campbell MD to Zita Dickens MD, on 03/23/2020 10:13:10 (ET). Electronically Signed: Narinder Campbell MD at 10:07 EDT , Service support , Chest X-Ray 03/23/20 09:53 IMPRESSION: Normal x-ray examination of the chest. Electronically Signed: Narinder Campbell MD at 12:09 EDT , Service support , Head/Neck CTA 03/23/20 12:08 IMPRESSION: Patent craniocervical arteries. Electronically Signed: Yunier Umanzor at 15:50 EDT Tel , Service support , Brain MRI 03/24/20 09:00 IMPRESSION: 1. No MRI evidence of acute or subacute ischemic infarct or acute intracranial abnormality. 2. 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 3. No significant interval change when compared to noncontrast CT head scan 03/23/2020. Electronically Signed: Narinder Campbell MD at 11:24 EDT , Service support , SOC neurology Operations: None Procedures: 2-D Echocardiogram Summary of Care Provided: The patient is a 75 year old M admitted 03/23/2020 due to right-sided weakness. 1. TIA-patient presented with transient right lower extremity weakness. MRI of brain negative for stroke. CTA of head and neck with patent arteries. Echocardiogram demonstrates an EF of 60%, bubble contrast negative for right to left intra-atrial shunt. Structurally normal valves. Neurology consult obtained. Recommend daily baby aspirin. 30-day event recorder at discharge. Allergy to statin. Follow-up with primary care physician in 1 week. Follow-up with neurology in 2 weeks. 2. Hypertension-stable, continue home amlodipine, HCTZ, lisinopril regimen. 3. Ytiquhocslhgzn-zrhc-hajvqkzvxt. On gemfibrozil. Allergy to statin. 4. Type 2 diabetes mellitus with neuropathy-continue home insulin and oral regimen. On gabapentin. 5. Small cell carcinoma-on immunotherapy with Keytruda. Continue follow-up with oncology. 6. Hypothyroidism-continue Synthroid regimen. Patient seen and examined prior to discharge. Physical assessment as noted below. Patient is stable for discharge with follow up recommendations as noted above. This patient was seen by [facility] Joseph under the supervision of Dr. Vaca. - Physical Exam Vitals/I&O's: Vital Signs Temp Pulse Resp BP Pulse Ox 99.2 F H 74 16 110/78 98 03/25/20 07:59 03/25/20 11:57 03/25/20 07:59 03/25/20 07:59 03/25/20 07:59 Oxygen Delivery Method Room Air Weight: 146 lb 6.191 oz Body Mass Index (BMI) 20.4 Finger Stick Blood Glucose 134 Intake and Output for Last 24 Hours 03/23/20 03/24/20 03/25/20 23:59 23:59 23:59 Intake Total 950 / 1050 0 / 2210 2119 Output Total 1500 / 1500 Balance 950 / 350 710 / 710 2119 General: Alert, Oriented x3, Cooperative HEENT: Atraumatic, PERRLA, EOMI, Normocephalic Neck: Supple, No JVD, Negative Carotid Bruits Lungs: Clear to auscultation, Normal air movement Cardiovascular: Regular rate, No murmurs Abdomen: Bowel Sounds Present, Soft, Non Tender Extremities: No clubbing, No cyanosis, No edema, Capillary Refill Less than 3 Seconds Skin: No rashes, No breakdown Musculoskeletal: No Tenderness to Palpation of Joints or Extremities Neurological: Cranial nerves II-XII grossly intact, Neuro grossly intact Psych/Mental Status: Normal Affect, Appropriate Laboratory Results 03/23/20 09:51: POC Glucose 134 H 03/24/20 06:39: POC Glucose 52 L 03/24/20 07:00: POC Glucose 77 03/24/20 12:50: POC Glucose 248 H 03/24/20 16:38: POC Glucose 215 H 03/24/20 22:20: POC Glucose 128 H 03/25/20 06:33: POC Glucose 102 03/25/20 11:39: POC Glucose 244 H Current Medications Acetaminophen (Tylenol) 650 mg PO Q4H PRN PRN PRN Reason: Headache/Temp>99.6F Acetaminophen (Tylenol) 650 mg RECTAL Q4H PRN PRN PRN Reason: Headache/Temp>99F Acetaminophen (Tylenol Liquid) 650 mg NG Q4H PRN PRN PRN Reason: Headache/Temp>99F Al Hydroxide/Mg Hydroxide (Mylanta Ii) 30 ml PO Q6H PRN PRN PRN Reason: Gastric Burning Albuterol Sulfate (Ventolin Aerosols) 2.5 mg INHALATION Q2H PRN PRN PRN Reason: SOB/Wheezing Allopurinol (Zyloprim) 300 mg PO DAILY [facility] Last Admin: 03/25/20 09:56 Dose: 300 mg Documented by: Amlodipine Besylate (Norvasc) 10 mg PO DAILY [facility] Last Admin: 03/25/20 09:56 Dose: 10 mg Documented by: Aspirin (Aspirin, Baby) 81 mg PO DAILY@0800 [facility] Last Admin: 03/25/20 09:55 Dose: 81 mg Documented by: Dextrose (D50w Syringe) 0 gm IV X1 PRN; Protocol PRN Reason: Hypoglycemia Enoxaparin Sodium (Lovenox) 40 mg SC DAILY [facility] Last Admin: 03/25/20 09:56 Dose: 40 mg Documented by: Famotidine (Pepcid) 20 mg PO DAILY [facility] Last Admin: 03/25/20 09:56 Dose: 20 mg Documented by: Gabapentin (Neurontin) 300 mg PO BIDCM [facility] Last Admin: 03/25/20 09:56 Dose: 300 mg Documented by: Gemfibrozil (Lopid) 600 mg PO BIDAC [facility] Last Admin: 03/25/20 06:30 Dose: 600 mg Documented by: Glucagon () 1 mg IM .X1 PRN PRN Reason: Hypoglycemia Hydralazine HCl (Apresoline Iv) 5 mg IV Q30M PRN PRN Reason: to maintain BP goals Hydrochlorothiazide (Hctz) 25 mg PO DAILY [facility] Last Admin: 03/25/20 09:56 Dose: 25 mg Documented by: Sodium Chloride () 1,000 mls @ 100 mls/hr IV .Q10H [facility] Last Infusion: 03/25/20 10:34 Dose: Infused Documented by: Insulin Glargine (Lantus (Bk)) 27 units SC QHS [facility] Last Admin: 03/24/20 22:24 Dose: Not Given Documented by: Insulin Human Lispro (Humalog Kwikpen (Bk)) 0 unit SC ACHS [facility]; Protocol Last Admin: 03/25/20 11:40 Dose: 4 u Documented by: Labetalol HCl (Trandate) 10 - 20 mg IV Q10M PRN PRN PRN Reason: to maintain BP goals Levothyroxine Sodium (Synthroid) 250 mcg PO DAILY@0600 [facility] Last Admin: 03/25/20 06:29 Dose: 250 mcg Documented by: Lisinopril (Zestril) 40 mg PO DAILY [facility] Last Admin: 03/25/20 09:56 Dose: 40 mg Documented by: Loperamide HCl (Imodium) 2 mg PO 4X/DAY PRN PRN Reason: LOOSE STOOLS Last Admin: 03/24/20 16:46 Dose: 2 mg Documented by: Melatonin (Melatonin) 3 mg PO QHS PRN PRN PRN Reason: INSOMNIA Mirtazapine (Remeron) 15 mg PO QHS [facility] Last Admin: 03/24/20 22:26 Dose: 15 mg Documented by: Nitroglycerin (Nitrostat) 0.4 mg SUBLINGUAL Q5M PRN PRN Reason: CARDIAC/CHEST PAIN Ondansetron HCl (Zofran) 4 mg IV Q8H PRN PRN PRN Reason: NAUSEA/VOMITING Oxycodone HCl (Oxyir) 5 mg PO Q4H PRN PRN PRN Reason: Pain Score 4-5/10 Oxycodone HCl (Oxyir) 10 mg PO Q4H PRN PRN PRN Reason: Pain Score 6-10/10 Promethazine HCl (Phenergan) 25 mg IM Q6H PRN PRN PRN Reason: Breakthrough Nausea/Vomiting Senna/Docusate Sodium (Senokot-S, Jessica-Colace) 2 tablet PO BID PRN PRN PRN Reason: Constipation Sodium Chloride () 10 - 40 ml IV UD PRN PRN Reason: SALINE FLUSH Discharge Diet: Low fat/ Low Cholesterol Discharge Activity: Return to Normal Activity Call your doctor if you observe: Numbness or Tingling, Shortness of breath, Dizziness, Fainting spells, Chest pain Home Medications: Medications to take at Discharge Insulin Glargine [Lantus SoloStar Pen] 46 units SC QHS 06/28/14 Levothyroxine [Synthroid] 250 mcg PO DAILY 06/28/14 Lisinopril [Zestril] 40 mg PO DAILY 06/28/14 metFORMIN (XR) [Glucophage Xr] 1,000 mg PO BID 06/28/14 Allopurinol 300 mg PO DAILY 03/23/20 Chlorhexidine 15 ml PO BID PRN 03/23/20 Gabapentin 300 mg PO BID 03/23/20 Gemfibrozil 600 mg PO BID 03/23/20 Loperamide [Imodium] 2 mg PO 4X/DAY PRN 03/23/20 Mirtazapine [Remeron] 15 mg PO QHS 03/23/20 Hoopa-3 Fatty Acids/Fish Oil [Fish Oil 1,000 mg Capsule] 3 ea PO BID 03/23/20 Ondansetron HCl [Zofran] 4 mg PO Q6H PRN PRN 03/23/20 Potassium Gluconate 99 mg PO DAILY 03/23/20 Amlodipine [Norvasc] 10 mg PO DAILY tab 03/25/20 Aspirin [Aspirin, Baby] 81 mg PO DAILY@0800 #30 tab.chew 03/25/20 Hydrochlorothiazide [Hctz] 25 mg PO DAILY tab 03/25/20 Following Prescrptions Were Given to Patient: Aspirin [Aspirin, Baby] 81 mg PO DAILY@0800 #30 tab.chew Transmission Status: Received by [facility] Other Amb Orders: 30-Day Event Recorder [[facility]] Location: None Selected Primary Care Physician: Reynaldo Sullivan MD [Primary Care Provider] - Please follow up with your Primary Care Physician in: 1 Week Please Follow Up With: Shree Shah MD - Neurology When: 2 Weeks Disposition: Home Minutes spent on discharge:: 35 Patient Condition:: Stable Medical Necessity - Tobacco Use Smoking Status: Never smoker Tobacco Use: Non-smoker Meaningful Use Info Meaningful Use Diagnoses (Choose all that apply): None applicable <Ricardo Vaca - Last Filed: 03/25/20 13:36> Discharge Date and Diagnosis - Secondary Discharge Diagnosis Chronic Problems: Chronic Problems 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 Data reviewed. I agree with the above note by the nurse practitioner. The patient is a 75 year old M signs for today presents with right-sided weakness. Patient also had difficulty finding words and could not even state his birthdate. Patient was brought to the hospital patient was outside the window for TPA and symptoms were improving. Patient had MRI that showed no metastatic lesions given his known history of small cell lung carcinoma. No evidence of any stroke as well. Patient was initially evaluated by the [facility] stroke team and then subsequently by [facility] telemetry neurology group. I spoke with the [facility] neurologist to recommended a loop recorder to evaluate for any arrhythmia. Will proceed with getting a 30-day event monitor for the patient. Patient will continue with aspirin. Patient's ultra panel was normal and noted for addition of statins at this time. Case discussed with the patient's at bedside. [] - Physical Exam Vitals/I&O's: Vital Signs Temp Pulse Resp BP Pulse Ox 37.3 C H 74 16 110/78 98 03/25/20 07:59 03/25/20 11:57 03/25/20 07:59 03/25/20 07:59 03/25/20 07:59 Oxygen Delivery Method Room Air Weight: 66.4 kg Body Mass Index (BMI) 20.4 Finger Stick Blood Glucose 134 Intake and Output for Last 24 Hours 03/23/20 03/24/20 03/25/20 23:59 23:59 23:59 Intake Total 950 / 1050 0 / 2210 2119 Output Total 1500 / 1500 Balance 950 / 350 710 / 710 2119 General: Alert, Cooperative Neurological: Motor Exam 5/5 strength throughout Psych/Mental Status: Normal Affect, Appropriate Laboratory Results 03/23/20 09:51: POC Glucose 134 H 03/24/20 06:39: POC Glucose 52 L 03/24/20 07:00: POC Glucose 77 03/24/20 12:50: POC Glucose 248 H 03/24/20 16:38: POC Glucose 215 H 03/24/20 22:20: POC Glucose 128 H 03/25/20 06:33: POC Glucose 102 03/25/20 11:39: POC Glucose 244 H Current Medications Acetaminophen (Tylenol) 650 mg PO Q4H PRN PRN PRN Reason: Headache/Temp>99.6F Acetaminophen (Tylenol) 650 mg RECTAL Q4H PRN PRN PRN Reason: Headache/Temp>99F Acetaminophen (Tylenol Liquid) 650 mg NG Q4H PRN PRN PRN Reason: Headache/Temp>99F Al Hydroxide/Mg Hydroxide (Mylanta Ii) 30 ml PO Q6H PRN PRN PRN Reason: Gastric Burning Albuterol Sulfate (Ventolin Aerosols) 2.5 mg INHALATION Q2H PRN PRN PRN Reason: SOB/Wheezing Allopurinol (Zyloprim) 300 mg PO DAILY [facility] Last Admin: 03/25/20 09:56 Dose: 300 mg Documented by: Amlodipine Besylate (Norvasc) 10 mg PO DAILY [facility] Last Admin: 03/25/20 09:56 Dose: 10 mg Documented by: Aspirin (Aspirin, Baby) 81 mg PO DAILY@0800 [facility] Last Admin: 03/25/20 09:55 Dose: 81 mg Documented by: Dextrose (D50w Syringe) 0 gm IV X1 PRN; Protocol PRN Reason: Hypoglycemia Enoxaparin Sodium (Lovenox) 40 mg SC DAILY [facility] Last Admin: 03/25/20 09:56 Dose: 40 mg Documented by: Famotidine (Pepcid) 20 mg PO DAILY [facility] Last Admin: 03/25/20 09:56 Dose: 20 mg Documented by: Gabapentin (Neurontin) 300 mg PO BIDCM [facility] Last Admin: 03/25/20 09:56 Dose: 300 mg Documented by: Gemfibrozil (Lopid) 600 mg PO BIDAC [facility] Last Admin: 03/25/20 06:30 Dose: 600 mg Documented by: Glucagon () 1 mg IM .X1 PRN PRN Reason: Hypoglycemia Hydralazine HCl (Apresoline Iv) 5 mg IV Q30M PRN PRN Reason: to maintain BP goals Hydrochlorothiazide (Hctz) 25 mg PO DAILY [facility] Last Admin: 03/25/20 09:56 Dose: 25 mg Documented by: Sodium Chloride () 1,000 mls @ 100 mls/hr IV .Q10H [facility] Last Infusion: 03/25/20 10:34 Dose: Infused Documented by: Insulin Glargine (Lantus (Bk)) 27 units SC QHS [facility] Last Admin: 03/24/20 22:24 Dose: Not Given Documented by: Insulin Human Lispro (Humalog Kwikpen ([facility])) 0 unit SC ACHS [facility]; Protocol Last Admin: 03/25/20 11:40 Dose: 4 u Documented by: Labetalol HCl (Trandate) 10 - 20 mg IV Q10M PRN PRN PRN Reason: to maintain BP goals Levothyroxine Sodium (Synthroid) 250 mcg PO DAILY@0600 [facility] Last Admin: 03/25/20 06:29 Dose: 250 mcg Documented by: Lisinopril (Zestril) 40 mg PO DAILY [facility] Last Admin: 03/25/20 09:56 Dose: 40 mg Documented by: Loperamide HCl (Imodium) 2 mg PO 4X/DAY PRN PRN Reason: LOOSE STOOLS Last Admin: 03/24/20 16:46 Dose: 2 mg Documented by: Melatonin (Melatonin) 3 mg PO QHS PRN PRN PRN Reason: INSOMNIA Mirtazapine (Remeron) 15 mg PO QHS [facility] Last Admin: 03/24/20 22:26 Dose: 15 mg Documented by: Nitroglycerin (Nitrostat) 0.4 mg SUBLINGUAL Q5M PRN PRN Reason: CARDIAC/CHEST PAIN Ondansetron HCl (Zofran) 4 mg IV Q8H PRN PRN PRN Reason: NAUSEA/VOMITING Oxycodone HCl (Oxyir) 5 mg PO Q4H PRN PRN PRN Reason: Pain Score 4-5/10 Oxycodone HCl (Oxyir) 10 mg PO Q4H PRN PRN PRN Reason: Pain Score 6-10/10 Promethazine HCl (Phenergan) 25 mg IM Q6H PRN PRN PRN Reason: Breakthrough Nausea/Vomiting Senna/Docusate Sodium (Senokot-S, Jessica-Colace) 2 tablet PO BID PRN PRN PRN Reason: Constipation Sodium Chloride () 10 - 40 ml IV UD PRN PRN Reason: SALINE FLUSH Discharge Diet: Low fat/ Low Cholesterol Discharge Activity: Return to Normal Activity Call your doctor if you observe: Numbness or Tingling, Shortness of breath, Dizziness, Fainting spells, Chest pain Disposition: Home Minutes spent on discharge:: 35 Patient Condition:: Stable Medical Necessity - Tobacco Use Smoking Status: Never smoker Tobacco Use: Non-smoker Meaningful Use Info Meaningful Use Diagnoses (Choose all that apply): None applicable Inpatient E&M: 49238 Disch Hosp
== END 2020-03-25 13:51 | disposition home or self-care (01) | DRG 57 ==
LOC: ED 10:35 → PCU 10:54
PROVIDERS: Admitting Provider Internal Medicine; Emergency Provider Emergency Medicine; PCP Family Medicine
DX: G81.91 Hemiplegia, unspecified affecting right dominant side (principal); C34.92 Malignant neoplasm of unspecified part of left bronchus or lung; R47.01 Aphasia; I10 Essential (primary) hypertension; E78.5 Hyperlipidemia, unspecified; E03.9 Hypothyroidism, unspecified; E11.40 Type 2 diabetes mellitus with diabetic neuropathy, unspecified; Z66 Do not resuscitate; Z88.8 Allergy status to other drugs, medicaments and biological substances; Z79.4 Long term (current) use of insulin; Z82.3 Family history of stroke; Z79.1 Long term (current) use of non-steroidal anti-inflammatories (NSAID); Z79.890 Hormone replacement therapy; D64.9 Anemia, unspecified
CPT/HCPCS: 36415; 70450; 70496; 70498; 70551; 71045; 80048; 80061; 82962; 83735; 84484; 85025; 85610; 85730; 92610; 93005; 93306; 94762; 97162; 97166; 97802; 99285; J7030; Q9967; A4216